=== PATIENT | male | born 1985 | race Caucasian/White ===

== ENCOUNTER 2022-05-14 03:48 | Emergency (ER) | payer SELFPAY ==
[~2022-05-14] VITALS: Ht 170.2 cm; Wt 86.2 kg
[2022-05-14 04:10] VITALS: BP 119/74
[2022-05-14] MEDS ORDERED: ASPIRIN 325 MG TAB PO ONE (04:10)
[2022-05-14] MEDS ORDERED: MORPHINE SULFATE 2 MG/ML SYR IVP ONE (04:10)
[2022-05-14] MEDS ORDERED: ONDANSETRON 4 MG/2 ML VIAL IVP ONE (04:10)
--- NOTE | 2022-05-14 04:10 | NUR ---
to bed ambulatory
--- NOTE | 2022-05-14 04:12 | NUR ---
pt ambulated to ed 11, pt c/o cp and rash all over body from syphilis, cp x 2 days, used meth today. pt placed in gown and on monitor, ekg complete and given to dr Parnell. nkda, pt denies any other medical history.
[2022-05-14 04:52] LABS: BASOPHILS # (AUTO) 0.1 K/uL (0.00-0.22); BASOPHILS % (AUTO) 0.7 % (0.0-2.0); EOSINOPHILS # (AUTO) 0.2 K/uL (0-0.4); EOSINOPHILS % (AUTO) 3.1 % (0.0-4.0); HEMATOCRIT 41.4 % (36-52); HEMOGLOBIN 14.3 g/dL (12.0-18.0); LYMPHOCYTES # (AUTO) 1.6 K/uL (2.0-11.5); LYMPHOCYTES % (AUTO) 19.6 % (20.5-51.1); MEAN CORPUSCULAR HEMOGLOBIN 30 pg (27-31); MEAN CORPUSCULAR HGB CONC 35 g/dL (33-37); MEAN CORPUSCULAR VOLUME 86.5 fL (80-94); MONOCYTES # (AUTO) 0.9 K/uL (0.8-1.0); MONOCYTES % (AUTO) 11.6 % (1.7-9.3); NEUTROPHILS # (AUTO) 5.2 K/uL (1.8-7.7); PLATELET COUNT (AUTO) 393 K/uL (140-450); RED BLOOD CELL COUNT(AUTO) 4.79 MIL/uL (4.20-6.10); RED CELL DISTRIBUTION WIDTH 13.4 % (11.6-13.7)
--- NOTE | 2022-05-14 05:08 | NUR ---
pt rsting in bed, pain has reduced.
[2022-05-14 05:09] LABS: ALBUMIN 3.1 g/dL (3.4-5.0); ANION GAP 10.7 (8-16); ASPARTATE AMINOTRANSFERASE 11 U/L (15-37); CARBON DIOXIDE 29.7 mmol/L (21-32); CHLORIDE 104 mmol/L (98-107); CREATININE 0.9 mg/dL (0.6-1.3); GFR ARICAN-AMERICAN 123 mL/min (>90); GLUCOSE 104 mg/dL (74-106); POTASSIUM 3.4 mmol/L (3.5-5.1); SODIUM SERUM 141 mmol/L (136-145); TOTAL BILIRUBIN 0.6 mg/dL (0.0-1.0); UREA NITROGEN, BLOOD 15 mg/dL (7-18)
--- NOTE | 2022-05-14 05:21 | NUR ---
PT TAKEN TO CT
[2022-05-14] MEDS ORDERED: AMOX-999 PO (06:30)
[2022-05-14 06:38] VITALS: BP 126/70
--- NOTE | 2022-05-14 06:39 | NUR ---
Patient discharged with v/s stable. Written and verbal after care instructions given and explained. Patient alert, oriented and verbalized understanding of instructions. Ambulatory with steady gait. All questions addressed prior to discharge. ID band removed. Patient advised to follow up with PMD. Rx [facility]. Patient educated on indication of medication including possible reaction and side effects. Opportunity to ask questions provided and answered.
== END 2022-05-14 06:39 | disposition home or self-care (01) ==
LOC: MED 03:48
DX: J18.9 Pneumonia, unspecified organism (principal); A53.9 Syphilis, unspecified
CPT/HCPCS: 36415; 71275; 80053; 84484; 85025; 93005; 96374; 96375; 99285; J2270; J2405; Q9967

== ENCOUNTER 2024-03-07 21:06 | Emergency (ER) | payer SELFPAY ==
[~2024-03-07] VITALS: Ht 170.2 cm; Wt 74.8 kg
[~2024-03-07 21:06] MED LIST: AMOX-999 PO
[2024-03-07 21:13] VITALS: BP 131/63; PULSE 99; RESP 14; TEMP 99.3; O2SAT 99
[2024-03-07 21:18] VITALS: BP 131/63; PULSE 99; RESP 14; TEMP 99.3
[2024-03-07] MEDS: NACL 0.9% 1,000 ML IV ONE ×2 (21:26→22:39)
[2024-03-07 21:32] LABS: BASOPHILS # (AUTO) 0.1 K/uL (0.00-0.22); BASOPHILS % (AUTO) 0.5 % (0.0-2.0); EOSINOPHILS # (AUTO) 0.4 K/uL (0-0.4); EOSINOPHILS % (AUTO) 3.1 % (0.0-4.0); HEMATOCRIT 47.8 % (36-52); HEMOGLOBIN 16.2 g/dL (12.0-18.0); LYMPHOCYTES # (AUTO) 4.8 K/uL (2.0-11.5); LYMPHOCYTES % (AUTO) 41.4 % (20.5-51.1); MEAN CORPUSCULAR HEMOGLOBIN 30 pg (27-31); MEAN CORPUSCULAR HGB CONC 34 g/dL (33-37); MEAN CORPUSCULAR VOLUME 89.5 fL (80-94); MONOCYTES # (AUTO) 1.2 K/uL (0.8-1.0); MONOCYTES % (AUTO) 10.2 % (1.7-9.3); NEUTROPHILS # (AUTO) 5.2 K/uL (1.8-7.7); NEUTROPHILS % (AUTO) 44.8 % (42.2-75.2); PLATELET COUNT (AUTO) 358 K/uL (140-450); RED BLOOD CELL COUNT(AUTO) 5.34 MIL/uL (4.20-6.10); RED CELL DISTRIBUTION WIDTH 13.7 % (11.6-13.7); WHITE BLOOD COUNT (AUTO) 11.6 K/uL (4.8-10.8)
[2024-03-07 21:53] VITALS: O2SAT 96
[2024-03-07 21:57] LABS: ANION GAP 22.7 (8-16); CALCIUM 9.1 mg/dL (8.5-10.1); CARBON DIOXIDE 20.9 mmol/L (21-32); CREATININE 1.3 mg/dL (0.6-1.3); POTASSIUM 3.6 mmol/L (3.5-5.1)
[2024-03-07] MEDS ORDERED: LIDOCAINE/EPI 1% 1:100000 20 ML VIAL INJ ONE (22:22)
[2024-03-07] MEDS: MORPHINE SULFATE 4 MG/ML SYR IVP ONE (23:24)
[2024-03-07] MEDS ORDERED: BACITRACIN OINT 500 UNITS/GM PKT TP ONE (23:41)
[2024-03-10] MEDS ORDERED: LIDOCAINE/EPI 1% 1:100000 20 ML VIAL INJ ONE (04:45)
== END 2024-03-07 23:54 | disposition home or self-care (01) ==
LOC: MED 21:06
DX: S21.212A Laceration without foreign body of left back wall of thorax without penetration into thoracic cavity, initial encounter (principal); S41.012A Laceration without foreign body of left shoulder, initial encounter; S41.011A Laceration without foreign body of right shoulder, initial encounter; S00.81XA Abrasion of other part of head, initial encounter; R06.02 Shortness of breath; F12.90 Cannabis use, unspecified, uncomplicated; F15.90 Other stimulant use, unspecified, uncomplicated; Z79.899 Other long term (current) drug therapy; X99.8XXA Assault by other sharp object, initial encounter; Y93.89 Activity, other specified; Y92.89 Other specified places as the place of occurrence of the external cause; Y99.8 Other external cause status
CPT/HCPCS: 36415; 71045; 80048; 85025; 96361; 96374; 99284; J2001; J2270; J7030; Q0092

== ENCOUNTER 2024-03-17 12:44 | Emergency (ER) | payer SELFPAY ==
[~2024-03-17] VITALS: Ht 170.2 cm; Wt 81.6 kg
[2024-03-17 12:53] VITALS: BP 115/86; PULSE 78; RESP 20; TEMP 97.9; O2SAT 99
== END 2024-03-17 13:18 | disposition home or self-care (01) ==
LOC: MED 12:44
DX: S41.012D Laceration without foreign body of left shoulder, subsequent encounter (principal); S41.011D Laceration without foreign body of right shoulder, subsequent encounter; Z79.2 Long term (current) use of antibiotics; X58.XXXD Exposure to other specified factors, subsequent encounter
CPT/HCPCS: 99281

== ENCOUNTER 2024-04-29 17:23 | Emergency (ER) | payer OTHER ==
[~2024-04-29] VITALS: Ht 170.2 cm; Wt 81.6 kg
[2024-04-29 17:28] VITALS: BP 140/90; PULSE 105; RESP 19; TEMP 98.1; O2SAT 97
[2024-04-29 19:54] VITALS: BP 140/90; PULSE 105; RESP 19; TEMP 98.1; O2SAT 97
== END 2024-04-29 19:56 | disposition home or self-care (01) ==
LOC: MED 17:23
DX: S01.01XA Laceration without foreign body of scalp, initial encounter (principal); S09.90XA Unspecified injury of head, initial encounter; Z79.899 Other long term (current) drug therapy; W22.8XXA Striking against or struck by other objects, initial encounter; Y93.89 Activity, other specified; Y92.89 Other specified places as the place of occurrence of the external cause; Y99.8 Other external cause status
CPT/HCPCS: 70450; 99284

== ENCOUNTER 2024-05-06 15:55 | Emergency (ER) | payer OTHER ==
[~2024-05-06] VITALS: Ht 170.2 cm; Wt 81.6 kg
[2024-05-06 16:06] VITALS: BP 126/73; PULSE 103; RESP 18; TEMP 97.4; O2SAT 99
[2024-05-06 18:03] VITALS: BP 126/73; PULSE 103; RESP 18; TEMP 97.4; O2SAT 99
== END 2024-05-06 18:05 | disposition home or self-care (01) ==
LOC: MED 15:55
DX: S01.01XD Laceration without foreign body of scalp, subsequent encounter (principal); Z48.02 Encounter for removal of sutures; Z79.899 Other long term (current) drug therapy; X58.XXXD Exposure to other specified factors, subsequent encounter
CPT/HCPCS: 99281